=== PATIENT | male | born 1975 | race African-American/Black ===

== ENCOUNTER → 2017-03-15 | Outpatient (CLI) | payer MEDICARE, OTHER ==
--- NOTE | 2017-03-15 15:51 | CT ---
EXAMINATION TYPE: CT abdomen pelvis w con DATE OF EXAM: 03/15/2017 3:43 PM REFERENCE: NONE HISTORY: white jkt black hat under clock, fruit punch X2 HISTORY: abdominal pain generalized (below umbilical area mostly) REFERENCE: NONE CT DLP: 761 mGy Automated exposure control for dose reduction was used. TECHNIQUE: Helical acquisition through the abdomen and pelvis was obtained following the oral ingesti on of with Oral Contrast and following intravenous administration of 100 mL of Omnipaque 300. The brianna a was reformatted in axial, coronal and sagittal projections. FINDINGS: Visualized portions of the lungs are clear. There is no pleural or pericardial fluid. Within the abdomen, the liver, spleen and gallbladder are normal. Both adrenal glands are normal. Both kidneys demonstrate function and appear morphologically normal. The pancreas is unremarkable. There is no significant retroperitoneal, iliac or inguinal adenopathy. The bladder is unremarkable. There is no significant diverticular change and there is no radiographic evidence of diverticulitis. There is colonic mucosal thickening involving the distal transverse colon and proximal descending col on. The appendix is not visualized with certainty. Small bowel loops appear normal. No free fluid and no free air is seen. No osseous lesion is seen. IMPRESSION: COLONIC MUCOSAL THICKENING INVOLVING THE DISTAL TRANSVERSE AND PROXIMAL DESCENDING COLONS. PLEASE COR RELATE FOR COLITIS.
== END | disposition home or self-care (01) ==
LOC: RADCTMAIN 13:35
PROVIDERS: ATTEND Family Medicine
DX: K63.89 Other specified diseases of intestine (principal); R10.84 Generalized abdominal pain; Z88.8 Allergy status to other drugs, medicaments and biological substances
CPT/HCPCS: 74177; Q9967

== ENCOUNTER 2017-04-23 10:49 | Day surgery (SDC) | payer MEDICARE, OTHER ==
[2017-04-19 09:33] VITALS: BMI 20.9
[~2017-04-23 10:49] MED LIST: LACTATED RINGERS 1,000 ML IV SCH; LIDOCAINE 1% 20 ML VIAL (10MG/ML) FOR IV START INTRADERMA PRN
[2017-04-23 11:09] VITALS: RESP 18; TEMP 97.9
[2017-04-23] MEDS ORDERED: PROPOFOL 10 MG/ML 20 ML VIAL IV ONE (12:05)
--- NOTE | 2017-04-23 12:38 | P.PCN ---
Date of Procedure: 04/23/17 Preoperative Diagnosis: Postoperative Diagnosis: Procedure(s) Performed: Procedure: Total colonoscopy. Preoperative diagnosis: Abdominal pain and abnormal CT. Postoperative diagnosis: Exam to the cecum within normal limits. Preparation: HalfLytely prep. Sedation: Was provided by anesthesia. Brief clinical history: The patient is a 41-year-old male who is referred for this evaluation because of abdominal pain and abnormal CT. The patient indicated that he had recurrent abdominal pains for many years and the pain has been worse over the last 3 months. There is no change in bowel habits or bleeding. CT of the abdomen done 03/15/2017, showed thickening in the distal transverse and proximal descending colon raising the possibility of colitis. This evaluation is to rule out inflammatory bowel disease or neoplasia. Procedure: With the patient on his left lateral decubitus position and after informed consent and adequate sedation, the perianal area was inspected and it did not show any fissures or fistulas. There were no masses felt on digital rectal examination. The Olympus CFQ 160L video colonoscope was then inserted in the rectum in the usual fashion and advanced to the cecum. The mucosa appeared healthy. No polyps or tumors were seen or any obvious diverticular disease or other pathology. I retroflexed the endoscope in the rectum before the endoscope was withdrawn. The patient tolerated the procedure well. Plan: The patient was reassured. He we will follow up with you as planned and I will be happy to see in the office if his symptoms persist. Implants: Indications for Procedure: Operative Findings: Description of Procedure:
[2017-04-23 12:49] VITALS: BP 118/71; PULSE 81
== END 2017-04-23 13:27 | disposition home or self-care (01) ==
LOC: ORWHC2ENDO 10:49
DX: R93.3 Abnormal findings on diagnostic imaging of other parts of digestive tract (principal); R10.9 Unspecified abdominal pain; Z88.8 Allergy status to other drugs, medicaments and biological substances; Z79.899 Other long term (current) drug therapy; Z79.1 Long term (current) use of non-steroidal anti-inflammatories (NSAID)
CPT/HCPCS: 45378; J2704

== ENCOUNTER 2017-05-05 07:56 | Emergency (ER) | payer MEDICARE, OTHER ==
[2017-05-05] MEDS ORDERED: SODIUM CHLORIDE 0.9% 500 ML IV STA (08:09)
--- NOTE | 2017-05-05 08:13 | ED ---
General Adult HPI - General Stated complaint: racing heart/sweat/RJ Time Seen by Provider: 05/05/17 08:00 Source: RN notes reviewed - History of Present Illness Initial comments: This is a 41 year old male with past medical history significant for anxiety. Patient comes in today because he woke up 2 hours prior to arrival with his heart racing patient states became diaphoretic and short of breath. Patient denies any chest pain at any time. Patient states by the time he got here the heart seems to be slowing down is feeling better. Patient states this occurred one other time in the past about one week ago. Patient denies any fever chills or cough recent. Patient denies any calf pain or leg swelling. Patient denies any recent trip or travel. Patient denies any headache patient denies lightheadedness dizziness or near syncopal episode. Patient denies any drug use. Patient states he does not think it was his anxiety. Patient currently states he feels much improved compared to earlier. - Related Data Home Medications Medication Instructions Recorded Confirmed Ibuprofen [Motrin] 200 - 400 mg PO Q6HR PRN 04/19/17 04/23/17 Multivitamin [Multiple Vitamins] 1 each PO DAILY 04/19/17 04/19/17 QUEtiapine FUMARATE [SEROquel] 400 mg PO HS 04/19/17 04/23/17 Allergies Allergy/AdvReac Type Severity Reaction Status Date / Time risperidone [From Risperdal] Allergy Unknown Verified 05/05/17 08:01 Review of Systems ROS Statement: Those systems with pertinent positive or pertinent negative responses have been documented in the HPI. ROS Other: All systems not noted in ROS Statement are negative. Past Medical History Past Medical History: No Reported History Additional Past Medical History / Comment(s): STATES "GUT" PAIN AND NAUSEA. History of Any Multi-Drug Resistant Organisms: None Reported Past Surgical History: No Surgical Hx Reported Additional Past Surgical History / Comment(s): KELOID REMOVED FROM FACE (CHILD). Past Anesthesia/Blood Transfusion Reactions: No Reported Reaction Past Psychological History: Anxiety, Bipolar, Depression Smoking Status: Heavy tobacco smoker Past Alcohol Use History: Rare Additional Past Alcohol Use History / Comment(s): SMOKES 1 1/2 PPD. SMOKING SINCE 13 YEARS OLD Past Drug Use History: Marijuana Additional Drug Use History / Comment(s): DAILY MARIJUANA USE. - Past Family History Mother Family Medical History: No Reported History General Exam - General Exam Comments Initial Comments: GENERAL: Patient is well-developed and well-nourished. Patient is nontoxic and well- hydrated and is in mild distress. ENT: Neck is soft and supple. No significant lymphadenopathy is noted. Oropharynx is clear. Moist mucous membranes. Neck has full range of motion without eliciting any pain. EYES: The sclera were anicteric and conjunctiva were pink and moist. Extraocular movements were intact and pupils were equal round and reactive to light. Eyelids were unremarkable. PULMONARY: Unlabored respirations. Good breath sounds bilaterally. No audible rales rhonchi or wheezing was noted. CARDIOVASCULAR: Patient's heart rate is about 100 bpm. ABDOMEN: Soft and nontender with normal bowel sounds. No palpable organomegaly was noted. There is no palpable pulsatile mass. SKIN: Skin is clear with no lesions or rashes and otherwise unremarkable. NEUROLOGIC: Patient is alert and oriented x3. Cranial nerves II through XII are grossly intact. Motor and sensory are also intact. Normal speech, volume and content. Symmetrical smile. MUSCULOSKELETAL: Normal extremities with adequate strength and full range of motion. No lower extremity swelling or edema. No calf tenderness. LYMPHATICS: No significant lymphadenopathy is noted PSYCHIATRIC: Normal psychiatric evaluation. Normal interpersonal interactions appears functionally intact in deals appropriately with others. No signs of depression. Patient appears to be mildly anxious Course Vital Signs 05/05/17 08:08 Temperature 98.9 F Pulse Rate 99 Respiratory 22 Rate Blood Pressure 112/67 O2 Sat by Pulse 98 Oximetry Medical Decision Making - Medical Decision Making EKG shows sinus tachycardia at 101 bpm [place] interval is 162 QRS is 102 QT interval 362 QTC is 469. Patient's EKG shows no ST segment elevation or depression no T-wave abnormalities are noted. Chest x-ray shows no acute abnormality. I will begin to reevaluate the patient he stated he had no symptoms whatsoever at this time. Patient states this has happened in the past and he wonders if it 's associated with all the energy drinks he has taken. Patient states he also is a smoker. Patient states she's not had any family history of any arrhythmias or heart problems. - Lab Data Result diagrams: 05/05/17 08:00 05/05/17 08:00 Lab Results 07/02/17 07/02/17 07/02/17 Range/Units 08:00 08:00 08:00 WBC 17.9 H (3.8-10.6) k/uL RBC 4.02 L (4.30-5.90) m/uL Hgb 12.9 L (13.0-17.5) gm/dL Hct 35.5 L (39.0-53.0) % MCV 88.3 (80.0-100.0) fL MCH 32.0 (25.0-35.0) pg MCHC 36.2 (31.0-37.0) g/dL RDW 12.4 (11.5-15.5) % Plt Count 200 (150-450) k/uL Neutrophils % 79 % Lymphocytes % 17 % Monocytes % 3 % Eosinophils % 1 % Basophils % 0 % Neutrophils # 14.2 H (1.3-7.7) k/uL Lymphocytes # 3.0 (1.0-4.8) k/uL Monocytes # 0.5 (0-1.0) k/uL Eosinophils # 0.2 (0-0.7) k/uL Basophils # 0.0 (0-0.2) k/uL PT (9.0-12.0) sec INR (<1.1) APTT (22.0-30.0) sec Sodium 141 (137-145) mmol/L Potassium 3.4 L (3.5-5.1) mmol/L Chloride 105 (98-107) mmol/L Carbon Dioxide 27 (22-30) mmol/L Anion Gap 9 mmol/L BUN 9 (9-20) mg/dL Creatinine 0.80 (0.66-1.25) mg/dL Est GFR (MDRD) Af Amer >60 (>60 ml/min/1.73 sqM) Est GFR (MDRD) Non-Af >60 (>60 ml/min/1.73 sqM) Glucose 158 H (74-99) mg/dL Calcium 9.2 (8.4-10.2) mg/dL Magnesium 1.9 (1.6-2.3) mg/dL Total Bilirubin 0.5 (0.2-1.3) mg/dL AST 24 (17-59) U/L ALT 14 L (21-72) U/L Alkaline Phosphatase 50 (38-126) U/L Total Creatine Kinase 169 (55-170) U/L CK-MB (CK-2) 0.7 (0.0-2.4) ng/mL CK-MB (CK-2) Rel Index 0.4 Troponin I <0.012 (0.000-0.034) ng/mL Total Protein 6.7 (6.3-8.2) g/dL Albumin 3.9 (3.5-5.0) g/dL TSH 3.100 (0.465-4.680) mIU/L Free T4 1.14 (0.78-2.19) ng/dL Urine Opiates Screen (NotDetected) Ur Oxycodone Screen (NotDetected) Urine Methadone Screen (NotDetected) Ur Propoxyphene Screen (NotDetected) Ur Barbiturates Screen (NotDetected) U Tricyclic Antidepress (NotDetected) Ur Phencyclidine Scrn (NotDetected) Ur Amphetamines Screen (NotDetected) U Methamphetamines Scrn (NotDetected) U Benzodiazepines Scrn (NotDetected) Urine Cocaine Screen (NotDetected) U Marijuana (THC) Screen (NotDetected) 05/05/17 05/05/17 Range/Units 08:00 08:30 WBC (3.8-10.6) k/uL RBC (4.30-5.90) m/uL Hgb (13.0-17.5) gm/dL Hct (39.0-53.0) % MCV (80.0-100.0) fL MCH (25.0-35.0) pg MCHC (31.0-37.0) g/dL RDW (11.5-15.5) % Plt Count (150-450) k/uL Neutrophils % % Lymphocytes % % Monocytes % % Eosinophils % % Basophils % % Neutrophils # (1.3-7.7) k/uL Lymphocytes # (1.0-4.8) k/uL Monocytes # (0-1.0) k/uL Eosinophils # (0-0.7) k/uL Basophils # (0-0.2) k/uL PT 9.9 (9.0-12.0) sec INR 1.0 (<1.1) APTT 25.0 (22.0-30.0) sec Sodium (137-145) mmol/L Potassium (3.5-5.1) mmol/L Chloride (98-107) mmol/L Carbon Dioxide (22-30) mmol/L Anion Gap mmol/L BUN (9-20) mg/dL Creatinine (0.66-1.25) mg/dL Est GFR (MDRD) Af Amer (>60 ml/min/1.73 sqM) Est GFR (MDRD) Non-Af (>60 ml/min/1.73 sqM) Glucose (74-99) mg/dL Calcium (8.4-10.2) mg/dL Magnesium (1.6-2.3) mg/dL Total Bilirubin (0.2-1.3) mg/dL AST (17-59) U/L ALT (21-72) U/L Alkaline Phosphatase (38-126) U/L Total Creatine Kinase (55-170) U/L CK-MB (CK-2) (0.0-2.4) ng/mL CK-MB (CK-2) Rel Index Troponin I (0.000-0.034) ng/mL Total Protein (6.3-8.2) g/dL Albumin (3.5-5.0) g/dL TSH (0.465-4.680) mIU/L Free T4 (0.78-2.19) ng/dL Urine Opiates Screen Not Detected (NotDetected) Ur Oxycodone Screen Not Detected (NotDetected) Urine Methadone Screen Not Detected (NotDetected) Ur Propoxyphene Screen Not Detected (NotDetected) Ur Barbiturates Screen Not Detected (NotDetected) U Tricyclic Antidepress Detected H (NotDetected) Ur Phencyclidine Scrn Not Detected (NotDetected) Ur Amphetamines Screen Not Detected (NotDetected) U Methamphetamines Scrn Not Detected (NotDetected) U Benzodiazepines Scrn Not Detected (NotDetected) Urine Cocaine Screen Not Detected (NotDetected) U Marijuana (THC) Screen Detected H (NotDetected) Disposition Clinical Impression: Palpitations, Leukocytosis Disposition: HOME SELF-CARE Condition: Good Instructions: Palpitations (ED) Referrals: Zaki Rodney MD [Primary Care Provider] - 1-2 days Time of Disposition: 09:29
[2017-05-05 08:28] LABS: Basophils % (A) 0 %; CH 31.8; CHCM 36.1; Eosinophils # (A) 0.2 k/uL (0-0.7); Eosinophils % (A) 1 %; HCT 35.5 % (39.0-53.0); HDW 2.43; HGB 12.9 gm/dL (13.0-17.5); Luc # (Auto) 0.09; Luc % (Auto) 1; Lymphocytes % (A) 17 %; MCHC 36.2 g/dL (31.0-37.0); MCV 88.3 fL (80.0-100.0); Monocytes # (A) 0.5 k/uL (0-1.0); Monocytes % (A) 3 %; Neutrophils # (A) 14.2 k/uL (1.3-7.7); Neutrophils % (A) 79 %; RBC 4.02 m/uL (4.30-5.90); RDW 12.4 % (11.5-15.5); WBC 17.9 k/uL (3.8-10.6); WBC (Perox) 17.45
[2017-05-05 08:38] LABS: ALT 14 U/L (21-72); AST 24 U/L (17-59); Alkaline Phosphatase 50 U/L (38-126); Anion Gap 9 mmol/L; Blood Urea Nitrogen 9 mg/dL (9-20); Calcium 9.2 mg/dL (8.4-10.2); Carbon Dioxide 27 mmol/L (22-30); Chloride 105 mmol/L (98-107); Glucose 158 mg/dL (74-99); Magnesium 1.9 mg/dL (1.6-2.3); Non-African American GFR(MDRD) >60 (>60 ml/min/1.73 sqM); Potassium 3.4 mmol/L (3.5-5.1); Sodium 141 mmol/L (137-145); Total Bilirubin 0.5 mg/dL (0.2-1.3); Total Protein 6.7 g/dL (6.3-8.2)
[2017-05-05 08:39] LABS: Prothrombin Time 9.9 sec (9.0-12.0)
--- NOTE | 2017-05-05 08:52 | XR ---
EXAMINATION TYPE: XR chest 2V DATE OF EXAM: 05/05/2017 COMPARISON: 09/08/2015 INDICATION: Dysrhythmia TECHNIQUE: Frontal and lateral views of the chest are obtained. FINDINGS: The heart size is normal. The pulmonary vasculature is normal. The lungs are clear. Previous left lower lobe infiltrate is resolved. IMPRESSION: 1. No acute pulmonary process.
[2017-05-05 08:59] LABS: Creatine Kinase 169 U/L (55-170)
[2017-05-05 09:12] LABS: Creatine Kinase MB 0.7 ng/mL (0.0-2.4); Troponin I <0.012 ng/mL (0.000-0.034)
[2017-05-05 09:38] VITALS: BP 110/67; PULSE 85; RESP 18; TEMP 97
== END 2017-05-05 09:39 | disposition home or self-care (01) ==
LOC: EC 07:56
DX: R00.2 Palpitations (principal); D72.829 Elevated white blood cell count, unspecified; R00.0 Tachycardia, unspecified; F31.9 Bipolar disorder, unspecified; F17.200 Nicotine dependence, unspecified, uncomplicated; Z88.8 Allergy status to other drugs, medicaments and biological substances; Z79.899 Other long term (current) drug therapy
CPT/HCPCS: 36415; 71020; 80053; 80306; 82550; 82553; 83735; 84439; 84443; 84484; 85025; 85610; 85730; 93005; 96360; 99285

== ENCOUNTER 2018-01-10 12:11 | Emergency (ER) | payer MEDICARE, OTHER ==
--- NOTE | 2018-01-10 13:20 | XR ---
Abdomen HISTORY: Pain with vomiting Frontal view of the abdomen submitted on 2 images. Correlation to prior exam 09/08/2015 Lung bases are clear. There is no pneumoperitoneum or bowel obstruction. Bone mineralization is stabl e. IMPRESSION: Nonobstructive bowel gas pattern.
[2018-01-10 13:58] LABS: Appearance,Urine Clear (Clear); Bilirubin,Urine Negative (Negative); Blood,Urine Negative (Negative); Color,Urine Yellow; Glucose,Urine (UA) Negative (Negative); Ketones,Urine 4+ (Negative); Leukocyte Esterase,Urine Negative (Negative); Mucus,Urine Many /hpf; PH, Urine 7.5 (5.0-8.0); Protein,Urine 1+ (Negative); RBC,Urine 1 /hpf (0-5); Specific Gravity,Urine 1.026 (1.001-1.035); WBC,Urine 1 /hpf (0-5)
[2018-01-10] MEDS ORDERED: SUCRALFATE 1 GM TAB PO STA (13:59)
[2018-01-10] MEDS ORDERED: MAG HYDROX/AL HYDROX/SIMETH 30 ML CUP PO PRN (13:59)
[2018-01-10] MEDS ORDERED: ONDANSETRON 4 MG/2 ML VIAL IVP STA (13:59)
[2018-01-10] MEDS ORDERED: FAMOTIDINE 20 MG/2 ML VIAL IV STA (13:59)
--- NOTE | 2018-01-10 14:45 | ED ---
General Adult HPI - General Chief complaint: Nausea/Vomiting/Diarrhea Stated complaint: Abd Pain/Vomiting Time Seen by Provider: 01/10/18 13:39 Source: patient Mode of arrival: ambulatory Limitations: no limitations - History of Present Illness Initial comments: Patient is a 42-year-old male with a history of bipolar depression presents with chief complaint of abdominal pain for one week. The patient says it is epigastric and sharp in nature. Patient cannot identify any inciting incidences. There are no aggravating or alleviating factors. Timing is constant. The patient states that he has been out of his Seroquel for about a week, I cannot follow-up with his doctor until Saturday. Patient does admit to smoking marijuana every day, he admits to using cocaine 3 days ago when he went to a alliance party despite having abdominal pain. - Related Data Home Medications Medication Instructions Recorded Confirmed Multivitamin [Multiple Vitamins] 1 tab PO DAILY 04/19/17 01/10/18 QUEtiapine FUMARATE [SEROquel] 400 mg PO HS 04/19/17 01/10/18 ALPRAZolam [Xanax] 0.25 mg PO TID PRN 01/10/18 01/10/18 Previous Rx's Medication Instructions Recorded Ondansetron HCl [Zofran] 4 mg PO Q6HR PRN #20 tablet 01/10/18 QUEtiapine FUMARATE [SEROquel] 400 mg PO HS #7 tablet 01/10/18 Ranitidine HCl [Zantac] 150 mg PO HS #30 tab 01/10/18 Sucralfate [Carafate] 1 gm PO ACHS #30 ml 01/10/18 Allergies Allergy/AdvReac Type Severity Reaction Status Date / Time risperidone [From Risperdal] Allergy Unknown Verified 01/10/18 14:07 Review of Systems ROS Statement: Those systems with pertinent positive or pertinent negative responses have been documented in the HPI. ROS Other: All systems not noted in ROS Statement are negative. Gastrointestinal: Reports: nausea, vomiting Genitourinary: Reports: dysuria Past Medical History Past Medical History: No Reported History Additional Past Medical History / Comment(s): STATES "GUT" PAIN AND NAUSEA. History of Any Multi-Drug Resistant Organisms: None Reported Past Surgical History: No Surgical Hx Reported Additional Past Surgical History / Comment(s): KELOID REMOVED FROM FACE (CHILD). Past Anesthesia/Blood Transfusion Reactions: No Reported Reaction Past Psychological History: Anxiety, Bipolar, Depression Smoking Status: Heavy tobacco smoker Past Alcohol Use History: Rare Past Drug Use History: Marijuana - Past Family History Mother Family Medical History: No Reported History General Exam Limitations: no limitations General appearance: alert, in no apparent distress Head exam: Present: atraumatic, normocephalic Eye exam: Present: normal appearance ENT exam: Present: normal exam Neck exam: Present: normal inspection Respiratory exam: Present: normal lung sounds bilaterally. Absent: respiratory distress, wheezes Cardiovascular Exam: Present: regular rate, normal rhythm GI/Abdominal exam: Present: soft. Absent: distended, tenderness Rectal exam: Present: deferred Back exam: Present: normal inspection. Absent: CVA tenderness (R), CVA tenderness (L) Neurological exam: Present: alert, oriented X3 Psychiatric exam: Present: normal affect, normal mood Skin exam: Present: warm, dry, intact Course Vital Signs 01/10/18 12:51 Temperature 97.2 F L Pulse Rate 65 Respiratory 17 Rate Blood Pressure 109/72 O2 Sat by Pulse 100 Oximetry Medical Decision Making - Medical Decision Making Patient presents with a chief complaint of nausea and vomiting 1 week along with abdominal pain. On initial evaluation, vital signs are stable, patient is in no acute distress. Patient admits to smoking marijuana daily, and cocaine use 3 days ago. Patient was given a GI cocktail along with Zofran. 4:02 PM W evaluation the patient is unremarkable. Urinalysis shows small amounts of red and white blood cells. There is many mucus seen in the urine. I discussed further the dysuria that the patient was concerned about. He denies any drainage or discharge. He denies any pain when he urinates. Examination of the genitals is unremarkable. Gonorrhea and chlamydia PCR as were sent from the urine. Patient is agreeable to empiric treatment in the emergency department. He was given Rocephin and azithromycin. At this time, patient states that his stomach is feeling better after the GI cocktail. He'll be prescribed Zantac, Carafate, and 1 week of Seroquel to bridge him to his psychiatrist appointment. The patient was instructed to follow up with primary care 1-2 days or return to the emergency department for reevaluation if symptoms worsen. - Lab Data Result diagrams: 01/10/18 14:51 01/10/18 14:51 Lab Results 01/10/18 01/10/18 01/10/18 Range/Units 12:55 14:51 14:51 WBC 6.0 (3.8-10.6) k/uL RBC 4.74 (4.30-5.90) m/uL Hgb 14.4 (13.0-17.5) gm/dL Hct 41.8 (39.0-53.0) % MCV 88.1 (80.0-100.0) fL MCH 30.3 (25.0-35.0) pg MCHC 34.4 (31.0-37.0) g/dL RDW 12.1 (11.5-15.5) % Plt Count 264 (150-450) k/uL Neutrophils % 65 % Lymphocytes % 28 % Monocytes % 5 % Eosinophils % 1 % Basophils % 0 % Neutrophils # 3.9 (1.3-7.7) k/uL Lymphocytes # 1.7 (1.0-4.8) k/uL Monocytes # 0.3 (0-1.0) k/uL Eosinophils # 0.1 (0-0.7) k/uL Basophils # 0.0 (0-0.2) k/uL Sodium 141 (137-145) mmol/L Potassium 3.9 (3.5-5.1) mmol/L Chloride 101 (98-107) mmol/L Carbon Dioxide 30 (22-30) mmol/L Anion Gap 10 mmol/L BUN 9 (9-20) mg/dL Creatinine 0.84 (0.66-1.25) mg/dL Est GFR (CKD-EPI)AfAm >90 (>60 ml/min/1.73 sqM) Est GFR (CKD-EPI)NonAf >90 (>60 ml/min/1.73 sqM) Glucose 96 (74-99) mg/dL Calcium 9.7 (8.4-10.2) mg/dL Total Bilirubin 0.6 (0.2-1.3) mg/dL AST 47 (17-59) U/L ALT 49 (21-72) U/L Alkaline Phosphatase 69 (38-126) U/L Total Protein 6.8 (6.3-8.2) g/dL Albumin 4.0 (3.5-5.0) g/dL Lipase 57 (23-300) U/L Urine Color Yellow Urine Appearance Clear (Clear) Urine pH 7.5 (5.0-8.0) Ur Specific [place] 1.026 (1.001-1.035) Urine Protein 1+ H (Negative) Urine Glucose (UA) Negative (Negative) Urine Ketones 4+ H (Negative) Urine Blood Negative (Negative) Urine Nitrite Negative (Negative) Urine Bilirubin Negative (Negative) Urine Urobilinogen 4.0 (<2.0) mg/dL Ur Leukocyte Esterase Negative (Negative) Urine RBC 1 (0-5) /hpf Urine WBC 1 (0-5) /hpf Urine Mucus Many H (None) /hpf Disposition Clinical Impression: Abdominal pain Disposition: HOME SELF-CARE Condition: Good Instructions: Acute Nausea and Vomiting (ED) Prescriptions: Ondansetron HCl [Zofran] 4 mg PO Q6HR PRN #20 tablet PRN Reason: Nausea QUEtiapine FUMARATE [SEROquel] 400 mg PO HS #7 tablet Ranitidine HCl [Zantac] 150 mg PO HS #30 tab Sucralfate [Carafate] 1 gm PO ACHS #30 ml Referrals: Zaki Rodney MD [Primary Care Provider] - 1-2 days
[2018-01-10] MEDS ORDERED: cefTRIAXone 250 MG VIAL IV STA (15:10)
[2018-01-10] MEDS ORDERED: AZITHROMYCIN 500 MG TAB PO STA (15:10)
[2018-01-10 15:21] LABS: Basophils % (A) 0 %; Eosinophils # (A) 0.1 k/uL (0-0.7); Eosinophils % (A) 1 %; HCT 41.8 % (39.0-53.0); HGB 14.4 gm/dL (13.0-17.5); Lymphocytes # (A) 1.7 k/uL (1.0-4.8); Lymphocytes % (A) 28 %; MCH 30.3 pg (25.0-35.0); MCHC 34.4 g/dL (31.0-37.0); MCV 88.1 fL (80.0-100.0); Monocytes # (A) 0.3 k/uL (0-1.0); Monocytes % (A) 5 %; Neutrophils # (A) 3.9 k/uL (1.3-7.7); Neutrophils % (A) 65 %; Platelet Count 264 k/uL (150-450); RBC 4.74 m/uL (4.30-5.90); RDW 12.1 % (11.5-15.5)
[2018-01-10 15:27] LABS: ALT 49 U/L (21-72); AST 47 U/L (17-59); Alkaline Phosphatase 69 U/L (38-126); Anion Gap 10 mmol/L; Blood Urea Nitrogen 9 mg/dL (9-20); Calcium 9.7 mg/dL (8.4-10.2); Carbon Dioxide 30 mmol/L (22-30); Chloride 101 mmol/L (98-107); Glucose 96 mg/dL (74-99); Lipase 57 U/L (23-300); Potassium 3.9 mmol/L (3.5-5.1); Sodium 141 mmol/L (137-145); Total Bilirubin 0.6 mg/dL (0.2-1.3); Total Protein 6.8 g/dL (6.3-8.2)
[2018-01-10 17:01] VITALS: BP 122/78; PULSE 58; RESP 18; TEMP 98.4
== END 2018-01-10 17:02 | disposition home or self-care (01) ==
LOC: EC 12:11
DX: R10.13 Epigastric pain (principal); R11.2 Nausea with vomiting, unspecified; F31.9 Bipolar disorder, unspecified; F41.9 Anxiety disorder, unspecified; F17.200 Nicotine dependence, unspecified, uncomplicated; Z79.899 Other long term (current) drug therapy; Z88.8 Allergy status to other drugs, medicaments and biological substances; Z53.8 Procedure and treatment not carried out for other reasons
CPT/HCPCS: 36415; 80053; 83690; 85025; 81001; 74018; 99284; 96365; 96375 ×2; J2405; J0696

== ENCOUNTER 2020-11-23 14:10 | Emergency (ER) | payer MEDICARE, OTHER ==
[2020-11-23 14:15] VITALS: BP 126/80; PULSE 81; RESP 16; TEMP 98.9
[2020-11-23] MEDS ORDERED: AMOXIC-POT CLAV 875-125MG 1 EACH TAB PO STA (14:24)
[2020-11-23] MEDS ORDERED: BUPIVACAINE (PF) 0.5% 30 ML VIAL SQ STA (14:24)
[2020-11-23] MEDS ORDERED: ACET/COD 300 MG/30 MG STARTER PACK 6 TAB BTL PO STA (14:24)
--- NOTE | 2020-11-23 14:38 | ED ---
ENT HPI - General Chief complaint: Dental/Oral Stated complaint: Tooth Pain Time Seen by Provider: 11/23/20 14:18 Source: patient Mode of arrival: ambulatory Limitations: no limitations - History of Present Illness Initial comments: 45-year-old male presenting to the emergency department with a chief complaint of dental pain. States he has not seen a dentist in quite some time. States the pain is located in the left upper and lower jaw. States he has cavities that have not been addressed. Denies any facial swelling, chills or fevers. Does report taking [id number] analgesics with no significant improvement in his symptoms. Denies any radiation of the pain. Pain is worse when he is exposed to fresh air or eating - Related Data Home Medications Medication Instructions Recorded Confirmed Multivitamin [Multiple Vitamins] 1 tab PO DAILY 04/19/17 01/10/18 QUEtiapine FUMARATE [SEROquel] 400 mg PO HS 04/19/17 01/10/18 ALPRAZolam [Xanax] 0.25 mg PO TID PRN 01/10/18 01/10/18 Previous Rx's Medication Instructions Recorded Ondansetron HCl [Zofran] 4 mg PO Q6HR PRN #20 tablet 01/10/18 QUEtiapine FUMARATE [SEROquel] 400 mg PO HS #7 tablet 01/10/18 Ranitidine HCl [Zantac] 150 mg PO HS #30 tab 01/10/18 Sucralfate [Carafate] 1 gm PO ACHS #30 ml 01/10/18 Amoxicillin/Potassium Clav 1 tab PO Q12HR #20 tab 11/23/20 [Augmentin 875-125 Tablet] Allergies Allergy/AdvReac Type Severity Reaction Status Date / Time risperidone [From Risperdal] Allergy Unknown Verified 11/23/20 14:14 Review of Systems ROS Statement: Those systems with pertinent positive or pertinent negative responses have been documented in the HPI. ROS Other: All systems not noted in ROS Statement are negative. Past Medical History Past Medical History: No Reported History Additional Past Medical History / Comment(s): STATES "GUT" PAIN AND NAUSEA. History of Any Multi-Drug Resistant Organisms: None Reported Past Surgical History: No Surgical Hx Reported Additional Past Surgical History / Comment(s): KELOID REMOVED FROM FACE (CHILD). Past Anesthesia/Blood Transfusion Reactions: No Reported Reaction Past Psychological History: Anxiety, Bipolar, Depression Smoking Status: Current every day smoker Past Alcohol Use History: Rare Past Drug Use History: Marijuana - Past Family History Mother Family Medical History: No Reported History General Exam Limitations: no limitations General appearance: alert, in no apparent distress Head exam: Present: atraumatic, normocephalic, normal inspection Eye exam: Present: normal appearance, PERRL, EOMI Pupils: Present: normal accommodation ENT exam: Present: normal exam, mucous membranes moist, TM's normal bilaterally, normal external ear exam. Absent: normal oropharynx (Poor dentition. No signs of periapical abscess. Cavity in tooth #10 and tooth #20. No oral lesions detected) Neck exam: Present: normal inspection, full ROM. Absent: lymphadenopathy Respiratory exam: Present: normal lung sounds bilaterally. Absent: respiratory distress, wheezes, rales, rhonchi, chest wall tenderness Cardiovascular Exam: Present: regular rate, normal rhythm, normal heart sounds Extremities exam: Present: normal inspection, full ROM, normal capillary refill. Absent: tenderness, pedal edema, joint swelling Back exam: Present: normal inspection, full ROM Neurological exam: Present: alert, oriented X3, normal gait Psychiatric exam: Present: normal affect, normal mood Skin exam: Present: warm, dry, intact, normal color Course Vital Signs 11/23/20 14:12 Temperature 98.9 F Pulse Rate 81 Respiratory 16 Rate Blood Pressure 126/80 O2 Sat by Pulse 100 Oximetry Procedures - Nerve Block Consent Obtained: verbal consent Local Anesthetic Used: Marcaine 0.5% Amount of anesthesia used: 5 Side: left Intraoral Nerve Block: infraorbital, mental Procedure Successful: Yes Patient Tolerated Procedure: well, no complications Medical Decision Making - Medical Decision Making 45-year-old male presenting to emergency Department with chief complaint of dental pain. On physical examination, no signs of periapical abscess. Patient does have history of poor dentition. He will be started on Augmentin. Will be discharged with a Tylenol 3 starter pack. Left infraorbital nerve block as well as a left mental block performed that were successful. Patient advised to follow up with a dentist. Return parameters discussed. Case discussed physician. Disposition Clinical Impression: Toothache Disposition: HOME SELF-CARE Condition: Stable Instructions (If sedation given, give patient instructions): Toothache (ED) Additional Instructions: Take prescribed medication as directed. Follow up with a dentist. Return to emergency department if symptoms worsen. Prescriptions: Amoxicillin/Potassium Clav [Augmentin 875-125 Tablet] 1 tab PO Q12HR #20 tab Is patient prescribed a controlled substance at d/c from ED?: No Referrals: Tylor Guillen MD [Primary Care Provider] - 1-2 days Time of Disposition: 15:10
== END 2020-11-23 15:43 | disposition home or self-care (01) ==
LOC: EC 14:10
DX: K08.89 Other specified disorders of teeth and supporting structures (principal); K00.7 Teething syndrome; F41.9 Anxiety disorder, unspecified; F31.9 Bipolar disorder, unspecified; F17.200 Nicotine dependence, unspecified, uncomplicated; Z88.8 Allergy status to other drugs, medicaments and biological substances
CPT/HCPCS: 64400; 99282